=== PATIENT | male | born 1975 | race Caucasian/White ===

== ENCOUNTER 2018-04-04 12:01 | Inpatient (IN) | payer SELFPAY ==
[~2018-04-04] VITALS: Ht 162.6 cm; Wt 70.3 kg
[2018-04-04] MEDS ORDERED: KEPPSOL GT (12:08)
[2018-04-04] MEDS ORDERED: LORAZEPAM 2MG/ML CPJ ONE (12:32)
[2018-04-04] MEDS ORDERED: LEVETIRACETAM 1000MG/100ML 100 ML IV ONE (12:45)
[2018-04-04] MEDS ORDERED: SODIUM CHLORIDE 0.9% 1,000 ML IV ONE (12:55)
[2018-04-04] MEDS ORDERED: LORAZEPAM 2MG/ML CPJ IV ONE ×2 (13:15→15:00)
[2018-04-04 14:48] LABS: CHLORIDE 109 mEq/L (98-107)
[2018-04-04 14:49] LABS: HEMATOCRIT. 41.9 % (42.0-52.0); HEMOGLOBIN. 14.4 g/dL (14.0-18.0); MEAN CORPUSCULAR HEMOGLOBIN 31.6 pg (28.0-32.0); MEAN CORPUSCULAR VOLUME 91.6 fL (80.0-94.0); MEAN PLATELET VOLUME 10.4 fl (7.4-10.4); PLATELET 165 x1000/uL (130-400); RED BLOOD CELL COUNT 4.58 mill/uL (4.7-6.1)
[2018-04-04 14:52] LABS: ETHANOL BLOOD < 10 mg/dL
[2018-04-04] MEDS ORDERED: ONDANSETRON HCL 4MG/2ML VIAL IV ONE (16:30)
[2018-04-04] MEDS ORDERED: HYDRALAZINE HCL 50MG TABLET PO ONE (16:45)
[2018-04-04 16:46] LABS: ATYPICAL LYMPHOCYTES 3; PLATELET ESTIMATE NORMAL
[2018-04-04 18:02] LABS: CLARITY URINE CLEAR (CLEAR); COLOR URINE YELLOW (YELLOW); KETONES URINE TRACE (NEGATIVE); LEUKOCYTE ESTERASE URINE NEGATIVE (NEGATIVE); NITRITE URINE NEGATIVE (NEGATIVE); OCCULT BLOOD URINE TRACE (NEGATIVE); PROTEIN URINE 2+ (NEGATIVE); SPECIFIC GRAVITY URINE 1.015 (1.005-1.030); UROBILINOGEN URINE 0.2 E.U./dL (0.2-1.0)
[2018-04-04 18:26] LABS: *AMPHETAMINES SCREEN URINE NEGATIVE (NEGATIVE); *BARBITURATES SCREEN URINE NEGATIVE (NEGATIVE); *BENZODIAZEPINES SCREEN URINE NEGATIVE (NEGATIVE)
[2018-04-04 18:27] LABS: *COCAINE SCREEN URINE NEGATIVE (NEGATIVE)
[2018-04-04 18:28] LABS: CANNABINOID URINE SCREEN NEGATIVE (NEGATIVE); METHADONE URINE SCREEN NEGATIVE (NEGATIVE); OPIATES URINE SCREEN NEGATIVE (NEGATIVE); PHENCYCLIDINE URINE SCREEN NEGATIVE (NEGATIVE)
[2018-04-04] MEDS ORDERED: ONDANSETRON HCL 4MG/2ML VIAL IV NR (20:30)
[2018-04-05] VITALS: BP 143/79
[2018-04-05] MEDS ORDERED: LEVE1000 PO (00:23)
[2018-04-05] MEDS ORDERED: ONDANSETRON HCL 4MG/2ML VIAL IV PRN (00:30)
[2018-04-05] MEDS ORDERED: MAGNESIUM/ALUMINUM HYDROXIDE/SIMETHICONE 30ML UDC PO PRN (00:30)
[2018-04-05] MEDS ORDERED: LORAZEPAM 2MG/ML CPJ IV PRN (00:30)
[2018-04-05] MEDS ORDERED: ACETAMINOPHEN 325MG TABLET PO PRN (00:30)
[2018-04-05] MEDS ORDERED: CLONIDINE 0.1MG TABLET PO PRN (00:30)
[2018-04-05] MEDS ORDERED: DIPHENHYDRAMINE 50MG/ML VIAL IV PRN (00:30)
[2018-04-05] MEDS: SODIUM CHLORIDE 0.9% 1,000 ML IV SCH ×2 (02:44→12:21)
[2018-04-05] MEDS: LEVETIRACETAM 500 MG in SODIUM CHLORIDE 0.9% 100 ML IV SCH ×2 (02:44→15:06)
[2018-04-05 04:00] VITALS: BP 126/78
[2018-04-05 08:54] VITALS: BP 158/73
[2018-04-05 12:09] VITALS: BP 125/71
[2018-04-05 16:25] VITALS: BP 153/83
[2018-04-05 18:45] VITALS: BP 153/83
== END 2018-04-05 19:15 | disposition home or self-care (01) | DRG 53 ==
LOC: ER 12:01 → 6WST 15:51 → EDBD 15:51 → ENRESERV 19:48 → 6WST 23:42
PROVIDERS: ADMIT Internal Medicine; ATTEND Internal Medicine
DX: G40.409 Other generalized epilepsy and epileptic syndromes, not intractable, without status epilepticus (principal); I10 Essential (primary) hypertension; Z79.899 Other long term (current) drug therapy
CPT/HCPCS: 36415; 70450; 71045; 80053; 80305; 81003; 85025; 93005; 96361; 96365; 96375; 96376; 99285; G0482; J1953; J2060; J2405; J7030; J7050; A4315

== ENCOUNTER 2022-04-17 11:47 | Emergency (ER) | payer SELFPAY ==
[~2022-04-17] VITALS: Ht 165.1 cm; Wt 82.0 kg
[~2022-04-17 11:47] MED LIST: KEPPSOL GT; LEVE1000 PO
[2022-04-17] MEDS ORDERED: ACETAMINOPHEN 325MG TABLET PO ONE (13:15)
[2022-04-17] MEDS ORDERED: IBUPROFEN 800MG TABLET PO NR (14:45)
[2022-04-17] MEDS ORDERED: MUPI1OIN4 TP (15:55)
[2022-04-17] MEDS ORDERED: IBUP-2029 MT (15:55)
[2022-04-17 16:10] VITALS: BP 132/103
== END 2022-04-17 16:16 | disposition home or self-care (01) ==
LOC: ER 11:47
DX: S40.012A Contusion of left shoulder, initial encounter (principal); S80.02XA Contusion of left knee, initial encounter; S50.812A Abrasion of left forearm, initial encounter; S60.512A Abrasion of left hand, initial encounter; G40.909 Epilepsy, unspecified, not intractable, without status epilepticus; V03.10XA Pedestrian on foot injured in collision with car, pick-up truck or van in traffic accident, initial encounter; Y93.89 Activity, other specified; Y92.488 Other paved roadways as the place of occurrence of the external cause
CPT/HCPCS: 71101; 72170; 73010; 73090; 73120; 73562; 99284

== ENCOUNTER 2022-04-17 18:21 | Emergency (ER) | payer SELFPAY ==
[~2022-04-17] VITALS: Ht 167.6 cm; Wt 73.0 kg
[~2022-04-17 18:21] MED LIST changes: +IBUP-2029 MT; +MUPI1OIN4 TP
[2022-04-17] MEDS ORDERED: LEVETIRACETAM 1000MG PREMIX 100 ML IV ONE (19:15)
[2022-04-17 20:16] LABS: BASOPHILS % 0.6 % (0.0-2.0); HEMATOCRIT. 35.1 % (42.0-52.0); HEMOGLOBIN. 11.5 g/dL (14.0-18.0); LYMPHOCYTES % 22.6 % (20.0-50.0); MEAN CORPUSCULAR HEMOGLOBIN 26.8 pg (28.0-32.0); MEAN CORPUSCULAR VOLUME 81.3 fL (80.0-94.0); MEAN PLATELET VOLUME 9.8 fl (7.4-10.4); MONOCYTES % 8.9 % (2.0-8.0); NEUTROPHILS % 67.9 % (40.0-76.0); PLATELET 67 x1000/uL (130-400); RED BLOOD CELL COUNT 4.31 mill/uL (4.7-6.1); RED CELL DISTRIBUTION WIDTH 16.7 % (11.6-14.6)
[2022-04-17 20:28] LABS: CHLORIDE 105 mEq/L (98-107)
[2022-04-17 22:00] VITALS: BP 135/82
== END 2022-04-17 22:37 | disposition home or self-care (01) ==
LOC: ER 18:21
DX: S02.40FA Zygomatic fracture, left side, initial encounter for closed fracture (principal); G40.909 Epilepsy, unspecified, not intractable, without status epilepticus; V03.10XA Pedestrian on foot injured in collision with car, pick-up truck or van in traffic accident, initial encounter; Y93.89 Activity, other specified; Y92.488 Other paved roadways as the place of occurrence of the external cause
CPT/HCPCS: 36415; 70450; 80053; 82962; 85025; 96365; 99284; J1953

== ENCOUNTER 2022-11-09 11:26 | Inpatient (IN) | payer MEDICAID ==
[~2022-11-09] VITALS: Ht 167.6 cm; Wt 69.9 kg
[2022-11-09] MEDS ORDERED: MIDAZOLAM HCL 2 MG/2 ML VIAL IM ONE (11:45)
[2022-11-09] MEDS ORDERED: LEVETIRACETAM 1000MG PREMIX 100 ML IV ONE (11:45)
[2022-11-09 12:05] LABS: HEMATOCRIT. 38.4 % (42.0-52.0); LYMPHOCYTES % 41.3 % (20.0-50.0); MEAN CORPUSCULAR HEMOGLOBIN 29.2 pg (28.0-32.0); MEAN CORPUSCULAR VOLUME 86.3 fL (80.0-94.0); MEAN PLATELET VOLUME 9.3 fl (7.4-10.4); NEUTROPHILS % 54.7 % (40.0-76.0); PLATELET 134 x1000/uL (130-400); RED BLOOD CELL COUNT 4.45 mill/uL (4.7-6.1); RED CELL DISTRIBUTION WIDTH 16.1 % (11.6-14.6)
[2022-11-09 12:10] LABS: CHLORIDE 107 mEq/L (98-107)
[2022-11-09 12:17] LABS: ETHANOL BLOOD < 10 mg/dL
[2022-11-09] MEDS ORDERED: MIDAZOLAM HCL 5 MG/ML VIAL IM NR (12:30)
[2022-11-09] MEDS ORDERED: MIDAZOLAM HCL 2 MG/2 ML VIAL IM NR (12:30)
[2022-11-09 12:44] LABS: CLARITY URINE CLEAR (CLEAR); COLOR URINE YELLOW (YELLOW); KETONES URINE NEGATIVE (NEGATIVE); LEUKOCYTE ESTERASE URINE NEGATIVE (NEGATIVE); NITRITE URINE NEGATIVE (NEGATIVE); OCCULT BLOOD URINE 2+ (NEGATIVE); PROTEIN URINE 3+ (NEGATIVE); SPECIFIC GRAVITY URINE 1.015 (1.005-1.030); UROBILINOGEN URINE 0.2 E.U./dL (0.2-1.0)
[2022-11-09 13:00] LABS: *AMPHETAMINES SCREEN URINE NEGATIVE (NEGATIVE); *BARBITURATES SCREEN URINE NEGATIVE (NEGATIVE); *BENZODIAZEPINES SCREEN URINE PRESUMTIVE POSITIVE (NEGATIVE); *COCAINE SCREEN URINE NEGATIVE (NEGATIVE); CANNABINOID URINE SCREEN NEGATIVE (NEGATIVE); METHADONE URINE SCREEN NEGATIVE (NEGATIVE); OPIATES URINE SCREEN NEGATIVE (NEGATIVE); PHENCYCLIDINE URINE SCREEN NEGATIVE (NEGATIVE)
[2022-11-09] MEDS ORDERED: CALCIUM GLUCONATE 1GM PREMIX 50 ML IV NR (13:00)
[2022-11-09] MEDS ORDERED: SODIUM CHL 0.9% + KCL 20MEQ/L 1,000 ML IV SCH (13:00)
[2022-11-09] MEDS ORDERED: LORAZEPAM 2MG/ML CPJ IV ONE (13:15)
[2022-11-09] MEDS ORDERED: DOCUSATE SODIUM 100MG CAPSULE PO PRN (14:00)
[2022-11-09] MEDS ORDERED: DEXTROSE 50% WATER 50ML SYRINGE IV PRN ×2 (14:00→18:15)
[2022-11-09] MEDS ORDERED: ACETAMINOPHEN 325MG TABLET PO PRN ×2 (14:00)
[2022-11-09] MEDS ORDERED: MAGNESIUM/ALUMINUM HYDROXIDE/SIMETHICONE 30ML UDC PO PRN (14:00)
[2022-11-09] MEDS ORDERED: GUAIFENESIN 200MG/10ML SUGAR FREE UDC PO PRN (14:00)
[2022-11-09] MEDS ORDERED: ONDANSETRON HCL 4MG/2ML INJ IV PRN (14:00)
[2022-11-09] MEDS ORDERED: CLONIDINE 0.1MG TABLET PO PRN (14:00)
[2022-11-09] MEDS ORDERED: IPRATROPIUM/ALBUTEROL 0.5-3(2.5)MG/3ML NEB NEB PRN (14:00)
[2022-11-09] MEDS ORDERED: LABETALOL 5MG/ML SYR 20 MG/4 ML SYRINGE IV NR (14:30)
[2022-11-09] MEDS: ENOXAPARIN 40MG/0.4ML SYR SUBCUT SCH (15:31)
[2022-11-09 15:41] LABS: TOTAL IRON BINDING CAPACITY 447 ug/dL (250-450)
[2022-11-09 15:46] LABS: CREATINE KINASE 375 IU/L (39-308)
[2022-11-09] MEDS ORDERED: LACTULOSE 20G/30ML UDC PO NR (16:00)
[2022-11-09] MEDS ORDERED: LORAZEPAM 2MG/ML CPJ IV PRN ×2 (16:45→17:15)
[2022-11-09] MEDS ORDERED: HYDRALAZINE 20MG/ML VIAL IV PRN (17:00)
[2022-11-09] MEDS ORDERED: BLOOD SUGAR DIAGNOSTIC STRIP TEST SCH (17:00)
[2022-11-09] MEDS ORDERED: HYDRALAZINE 20MG/ML VIAL IV SCH (17:00)
[2022-11-09 17:30] VITALS: BP 152/93
[2022-11-09] MEDS ORDERED: FOLIC ACID 1 MG,THIAMINE HCL 100 MG,MVI, ADULT NO.1 10 ML in DEXTROSE 5% IV ONE ×4 (18:00)
[2022-11-09] MEDS ORDERED: INSULIN LISPRO 100 UNITS/ML SUBCUT SCH (18:20)
[2022-11-09] MEDS: INSULIN LISPRO 100 UNITS/ML SUBCUT SCH ×2 (18:20→21:00)
[2022-11-09 18:23] VITALS: BP 152/93
[2022-11-09 20:04] VITALS: BP 145/60
[2022-11-09] MEDS: BLOOD SUGAR DIAGNOSTIC STRIP TEST SCH (21:00)
[2022-11-09] MEDS: LEVETIRACETAM 1000MG PREMIX 100 ML IV SCH (21:18)
[2022-11-09] MEDS: KCL 20MEQ/100ML X 2 FOR TOTAL KCL 40MEQ/200ML IV SCH ×2 (21:18→23:04)
[2022-11-09 23:18] LABS: CREATINE KINASE 557 IU/L (39-308)
[2022-11-10] VITALS (7 sets, daily range): BP systolic 129–167; BP diastolic 66–92
[2022-11-10] MEDS: BLOOD SUGAR DIAGNOSTIC STRIP TEST SCH ×4 (05:31→21:00)
[2022-11-10] MEDS: INSULIN LISPRO 100 UNITS/ML SUBCUT SCH ×4 (05:31→21:00)
[2022-11-10 06:19] LABS: BASOPHILS % 0.5 % (0.0-2.0); HEMATOCRIT. 33.6 % (42.0-52.0); LYMPHOCYTES % 31.4 % (20.0-50.0); MEAN CORPUSCULAR HEMOGLOBIN 29.8 pg (28.0-32.0); MEAN CORPUSCULAR VOLUME 83.3 fL (80.0-94.0); MEAN PLATELET VOLUME 8.8 fl (7.4-10.4); MONOCYTES % 10.1 % (2.0-8.0); PLATELET 66 x1000/uL (130-400); RED BLOOD CELL COUNT 4.03 mill/uL (4.7-6.1); RED CELL DISTRIBUTION WIDTH 16.4 % (11.6-14.6)
[2022-11-10 06:49] LABS: CHLORIDE 105 mEq/L (98-107)
[2022-11-10 07:08] LABS: PHOSPHORUS 3.8 mg/dL (2.5-4.9); T4 FREE 0.97 ng/dL (0.76-1.46)
[2022-11-10] MEDS ORDERED: POTASSIUM CHLORIDE 20MEQ TABLET SR PO NR (08:15)
[2022-11-10] MEDS: PANTOPRAZOLE SODIUM 40 MG/VIAL IV SCH (08:21)
[2022-11-10] MEDS: LEVETIRACETAM 1000MG PREMIX 100 ML IV SCH ×2 (09:53→21:00)
[2022-11-10] MEDS ORDERED: MAGNESIUM 2 G PREMIX 50 ML IV SCH (10:00)
[2022-11-10] MEDS: KCL 20MEQ/100ML PREMIX 100 ML IV SCH ×2 (11:31→15:02)
[2022-11-10] MEDS: ENOXAPARIN 40MG/0.4ML SYR SUBCUT SCH (15:01)
[2022-11-11] VITALS: BP 149/88
[2022-11-11 04:00] VITALS: BP 151/92
[2022-11-11] MEDS: INSULIN LISPRO 100 UNITS/ML SUBCUT SCH (05:48)
[2022-11-11] MEDS: BLOOD SUGAR DIAGNOSTIC STRIP TEST SCH (05:48)
[2022-11-11] MEDS: PANTOPRAZOLE SODIUM 40 MG/VIAL IV SCH (07:40)
[2022-11-11 08:00] VITALS: BP 150/93
[2022-11-11] MEDS: LEVETIRACETAM 1000MG PREMIX 100 ML IV SCH (09:00)
== END 2022-11-11 11:55 | disposition home or self-care (01) | DRG 53 ==
LOC: ER 11:57 → 7WST 12:31 → EDBEDREQ 12:34 → EDBEDREQTM 12:34 → EDBEDREQ 12:35
PROVIDERS: ADMIT Hospitalist; ATTEND Hospitalist
PROC: 4A00X4Z Measurement of Central Nervous Electrical Activity, External Approach (ICD-10-PCS; principal; 2022-11-11)
DX: G40.909 Epilepsy, unspecified, not intractable, without status epilepticus (principal); J96.01 Acute respiratory failure with hypoxia; J69.0 Pneumonitis due to inhalation of food and vomit; G93.41 Metabolic encephalopathy; E72.20 Disorder of urea cycle metabolism, unspecified; E87.20 Acidosis, unspecified; M62.82 Rhabdomyolysis; R65.10 Systemic inflammatory response syndrome (SIRS) of non-infectious origin without acute organ dysfunction; E87.6 Hypokalemia; D64.9 Anemia, unspecified; I10 Essential (primary) hypertension; R74.01 Elevation of levels of liver transaminase levels
CPT/HCPCS: 36415; 71045; 76700; 80053; 80305; 80320; 81003; 82010; 82140; 82542; 82550; 82962; 83036; 83540; 83550; 83605; 83735; 84100; 84132; 84145; 84439; 84443; 84484; 85025; 93005; 93970; 95816; 97161; 99285; C9113; J0610; J1650; J1953; J2060; J2250; J3411; J3475; J3480; J3490; J7070; A4315; G0480

== ENCOUNTER 2024-02-20 15:54 | Emergency (ER) | payer SELFPAY ==
[~2024-02-20] VITALS: Ht 167.6 cm; Wt 77.0 kg
[2024-02-20 16:05] VITALS: TEMP 98.8; O2SAT 94
[2024-02-20 17:06] LABS: BASOPHILS % 0.7 % (0.0-2.0); HEMOGLOBIN. 13.7 g/dL (14.0-18.0); LYMPHOCYTES % 25.8 % (20.0-50.0); MEAN CORPUSCULAR HGB CONC 33.4 g/dL (31.0-37.0); MEAN CORPUSCULAR VOLUME 83.9 fL (80.0-94.0); MEAN PLATELET VOLUME 9.5 fl (7.4-10.4); MONOCYTES % 7.6 % (2.0-8.0); NEUTROPHILS % 65.9 % (40.0-76.0); PLATELET 87 x1000/uL (130-400); RED BLOOD CELL COUNT 4.88 mill/uL (4.7-6.1); RED CELL DISTRIBUTION WIDTH 16.9 % (11.6-14.6); WHITE BLOOD COUNT 4.3 x1000/uL (4.5-11.0)
[2024-02-20] MEDS: LEVETIRACETAM 1000MG PREMIX 100 ML IV ONE (17:14)
[2024-02-20 17:18] LABS: CHLORIDE 106 mEq/L (98-107); POTASSIUM 3.6 mEq/L (3.5-5.1); SODIUM 137 mEq/L (136-145)
[2024-02-20 17:19] LABS: CALCIUM 9.5 mg/dL (8.7-10.4); CARBON DIOXIDE 21 mEq/L (21-32)
[2024-02-20 17:24] LABS: CREATININE 0.7 mg/dL (0.6-1.3); GLUCOSE 108 mg/dL (70-105); TROPONIN I HIGH SENSITIVITY 5 ng/L (3.0-53); UREA NITROGEN BLOOD 11 mg/dL (9-23)
[2024-02-20 17:28] LABS: ETHANOL BLOOD < 10 mg/dL (<10)
[2024-02-20 21:15] VITALS: BP 136/87; PULSE 89; RESP 17
== END 2024-02-20 21:25 | disposition home or self-care (01) ==
LOC: ER 15:54
DX: G40.909 Epilepsy, unspecified, not intractable, without status epilepticus (principal); I10 Essential (primary) hypertension
CPT/HCPCS: 80048; 80320; 85025; 84484; 36415; 93005; 96365; 99285; J1953; G0480

== ENCOUNTER 2024-03-16 11:03 | Emergency (ER) | payer MEDICAID ==
[~2024-03-16] VITALS: Ht 167.6 cm; Wt 75.0 kg
[2024-03-16 11:04] VITALS: O2SAT 98
[2024-03-16 12:46] LABS: CHLORIDE 109 mEq/L (98-107); POTASSIUM 3.8 mEq/L (3.5-5.1); SODIUM 139 mEq/L (136-145)
[2024-03-16 12:47] LABS: CARBON DIOXIDE 21 mEq/L (21-32)
[2024-03-16 12:52] LABS: CREATININE 0.7 mg/dL (0.6-1.3); GLUCOSE 109 mg/dL (70-105); UREA NITROGEN BLOOD 5 mg/dL (9-23)
[2024-03-16 13:10] LABS: CLARITY URINE CLEAR (CLEAR); COLOR URINE YELLOW (YELLOW); GLUCOSE URINE NEGATIVE (NEGATIVE); KETONES URINE NEGATIVE (NEGATIVE); LEUKOCYTE ESTERASE URINE NEGATIVE (NEGATIVE); NITRITE URINE NEGATIVE (NEGATIVE); OCCULT BLOOD URINE NEGATIVE (NEGATIVE); PROTEIN URINE 3+ (NEGATIVE); SPECIFIC GRAVITY URINE 1.011 (1.005-1.030); UROBILINOGEN URINE 0.2 E.U./dL (0.2-1.0)
[2024-03-16 13:21] LABS: *AMPHETAMINES SCREEN URINE NEGATIVE (NEGATIVE)
[2024-03-16 13:22] LABS: *BARBITURATES SCREEN URINE NEGATIVE (NEGATIVE); *BENZODIAZEPINES SCREEN URINE NEGATIVE (NEGATIVE); *COCAINE SCREEN URINE NEGATIVE (NEGATIVE); METHADONE URINE SCREEN NEGATIVE (NEGATIVE); OPIATES URINE SCREEN NEGATIVE (NEGATIVE)
[2024-03-16 13:23] LABS: CANNABINOID URINE SCREEN NEGATIVE (NEGATIVE); ECSTASY MDMA SCREEN URINE NEGATIVE (NEGATIVE); PHENCYCLIDINE URINE SCREEN NEGATIVE (NEGATIVE)
[2024-03-16 13:29] LABS: ETHANOL BLOOD 72 mg/dL (<10)
[2024-03-16 14:18] LABS: MUCUS URINE TRACE /lpf (NONE/TRACE)
[2024-03-16 14:19] LABS: BACTERIA URINE NONE SEEN; RBC URINE NONE SEEN /hpf (0-2); SQUAMOUS EPITHELIAL CELL URINE NONE SEEN /lpf (RARE/1+); WBC URINE 0-2 /hpf (0-2)
[2024-03-16 14:47] LABS: BASOPHILS % 0.6 % (0.0-2.0); HEMATOCRIT. 38.9 % (42.0-52.0); HEMOGLOBIN. 12.7 g/dL (14.0-18.0); LYMPHOCYTES % 32.5 % (20.0-50.0); MEAN CORPUSCULAR HGB CONC 32.7 g/dL (31.0-37.0); MEAN CORPUSCULAR VOLUME 85.8 fL (80.0-94.0); MONOCYTES % 8.9 % (2.0-8.0); PLATELET 116 x1000/uL (130-400); RED BLOOD CELL COUNT 4.53 mill/uL (4.7-6.1); RED CELL DISTRIBUTION WIDTH 16.1 % (11.6-14.6)
[2024-03-16] MEDS: FLUOXETINE HCL 10 MG CAPSULE PO SCH (16:24)
[2024-03-17] MEDS: LEVETIRACETAM 500MG TABLET PO ONE (09:30)
[2024-03-17 15:48] VITALS: BP 151/85; PULSE 72; RESP 18; TEMP 98
== END 2024-03-17 16:20 ==
LOC: ER 11:03
DX: R45.851 Suicidal ideations (principal); F32.A Depression, unspecified; F17.200 Nicotine dependence, unspecified, uncomplicated; I10 Essential (primary) hypertension; F10.20 Alcohol dependence, uncomplicated; Z20.822 Contact with and (suspected) exposure to COVID-19; Y90.3 Blood alcohol level of 60-79 mg/100 ml
CPT/HCPCS: 36415; 80048; 80305; 80320; 81003; 85025; 87426; 99285; G0480

== ENCOUNTER 2024-07-12 12:52 | Emergency (ER) | payer MEDICAID ==
[~2024-07-12] VITALS: Ht 170.2 cm; Wt 66.0 kg
[2024-07-12 12:56] VITALS: O2SAT 99
[2024-07-12 13:45] LABS: BASOPHILS % 0.4 % (0.0-2.0); HEMATOCRIT. 37.9 % (42.0-52.0); HEMOGLOBIN. 12.7 g/dL (14.0-18.0); LYMPHOCYTES % 15.2 % (20.0-50.0); MEAN CORPUSCULAR HGB CONC 33.5 g/dL (31.0-37.0); MEAN CORPUSCULAR VOLUME 89.4 fL (80.0-94.0); MEAN PLATELET VOLUME 8.6 fl (7.4-10.4); MONOCYTES % 10.2 % (2.0-8.0); NEUTROPHILS % 74.2 % (40.0-76.0); PLATELET 116 x1000/uL (130-400); RED BLOOD CELL COUNT 4.24 mill/uL (4.7-6.1); RED CELL DISTRIBUTION WIDTH 15.7 % (11.6-14.6); WHITE BLOOD COUNT 5.9 x1000/uL (4.5-11.0)
[2024-07-12 13:51] LABS: CHLORIDE 100 mEq/L (98-107); POTASSIUM 4.1 mEq/L (3.5-5.1); SODIUM 127 mEq/L (136-145)
[2024-07-12 13:52] LABS: CARBON DIOXIDE 20 mEq/L (21-32)
[2024-07-12 13:53] LABS: CALCIUM 9.3 mg/dL (8.7-10.4)
[2024-07-12] MEDS: LEVETIRACETAM 500MG PREMIX 100 ML IV ONE (13:53)
[2024-07-12 13:57] LABS: CREATININE 0.9 mg/dL (0.6-1.3); GLUCOSE 129 mg/dL (70-105); UREA NITROGEN BLOOD 9 mg/dL (9-23)
[2024-07-12 16:30] VITALS: TEMP 37.66968
[2024-07-12 19:58] VITALS: BP 131/84; PULSE 62; RESP 16; O2SAT 100
== END 2024-07-12 20:10 | disposition home or self-care (01) ==
LOC: ER 13:12
DX: R56.9 Unspecified convulsions (principal); I10 Essential (primary) hypertension
CPT/HCPCS: 80048; 85025; 36415; 96365; 99285; J1953; Z7610 ×2